=== PATIENT | male | born 1985 | race African-American/Black ===

== ENCOUNTER 2018-07-01 18:02 | Emergency (ER) | payer OTHER, SELFPAY ==
[2018-07-01] MEDS ORDERED: HYDROcodone/Acetaminophen 5/325 mg Tablet ONE (18:31)
== END 2018-07-01 19:35 | disposition home or self-care (01) ==
LOC: ERS 18:02
DX: L03.211 Cellulitis of face (principal); F17.210 Nicotine dependence, cigarettes, uncomplicated
CPT/HCPCS: 99283

== ENCOUNTER 2022-03-18 11:21 | Emergency (ER) | payer SELFPAY ==
[2022-03-18] MEDS ORDERED: Acetaminophen 500 MG TAB ONE (12:58)
[2022-03-18] MEDS ORDERED: Ondansetron ODT 4 MG TAB ONE (13:31)
== END 2022-03-18 14:01 | disposition home or self-care (01) ==
LOC: ERS 11:21
DX: R10.13 Epigastric pain (principal); R19.7 Diarrhea, unspecified; Z20.822 Contact with and (suspected) exposure to COVID-19; F17.210 Nicotine dependence, cigarettes, uncomplicated
CPT/HCPCS: 93005; Q0162; U0003; U0005